=== PATIENT | female | born 1960 | race Hispanic/Latino ===

== ENCOUNTER 2018-07-27 21:21 | Inpatient (IN) | payer SELFPAY ==
[2018-07-27 22:16] LABS: Hemoglobin 13.6 g/dL (12.0-16.0); Mean Corpuscular Hemoglobin 24.6 pg (27.0-31.0); Mean Corpuscular Volume 82.8 fL (78.0-98.0); Red Blood Cell (RBC) Count 5.53 mill/uL (4.20-5.40); White Blood Cell (WBC) Count 9.4 thou/uL (4.8-10.8)
[2018-07-27] MEDS ORDERED: Acetaminophen 500 MG TAB ONE (22:19)
--- NOTE | 2018-07-27 22:26 | RAD ---
PORTABLE CHEST: 07/27/18 PROVIDED CLINICAL HISTORY: Altered mental status. FINDINGS: Comparison is made with the study dated 09/24/17. The cardiac silhouette remains enlarged. The left hemidiaphragm was poorly visualized which could be on the basis of cardiomegaly though pleural and/or parenchymal opacity at the left lung base cannot b e excluded. Lungs appear otherwise clear. There is no evidence for pneumothorax. IMPRESSION: Cardiomegaly and poor visualization of the left hemidiaphragm that could reflect pleural and/or paren chymal opacity. Consider correlating with the lateral view. POS: SETH
--- NOTE | 2018-07-27 22:27 | CT ---
CT BRAIN 07/27/18 PROVIDED CLINICAL HISTORY: Altered mental status. FINDINGS: No comparisons. The ventricular system appears normal in size and morphology. There is no evidence fo r intracranial hemorrhage or mass effect. The extracranial soft tissues and osseous structures demons trate an unremarkable CT appearance. IMPRESSION: No evidence for intracranial hemorrhage or mass effect. POS: SETH
[2018-07-27 22:38] LABS: #Eosinphils 0.1 thou/uL (0.0-0.7); #Lymphocytes 1.1 thou/uL (1.20-3.40); #Monocytes 0.5 thou/uL (0.11-0.59); #Neutrophils 7.7 thou/uL (1.40-6.50); %Basophils 0.5 % (0.0-1.0); %Eosinophils 0.6 % (0.0-10.0); %Lymphocytes 11.6 % (21.0-51.0); %Monocytes 5.5 % (0.0-10.0); %Neutrophils 81.8 % (42.0-75.0); Mean Corpuscular HGB CONC 29.7 g/dL (32.0-36.0); Mean Platelet Volume 10.6 fL (7.4-10.4); Platelet Count 195 thou/uL (130-400); RBC Distribution Width 22.1 % (11.5-14.5); RBC Morphology Normal
[2018-07-27 22:40] LABS: ALT (SGPT) 16 U/L (8-55); AST (SGOT) 23 U/L (5-34); Albumin 3.9 g/dL (3.5-5.0); Alkaline Phosphatase 103 U/L (40-150); Anion Gap 16 mmol/L (10-20); BUN (Urea Nitrogen) 40 mg/dL (9.8-20.1); Bilirubin, Total 0.6 mg/dL (0.2-1.2); Calc. Creatinine Clearance 0 mL/min (70-130); Calcium 10.2 mg/dL (7.8-10.44); Carbon Dioxide 37 mmol/L (22-29); Chloride 85 mmol/L (98-107); Estimated GFR-MDRD 38; Glucose 355 mg/dL (70-105); Potassium 3.5 mmol/L (3.5-5.1); Protein, Total 7.9 g/dL (6.0-8.3); Sodium 134 mmol/L (136-145)
[2018-07-27 23:01] LABS: Acetaminophen Less than 6.0 mcg/mL (10.0-30.0); Alcohol Less than 10 mg/dL (Less than 10); Salicylate Less than 8.0 mg/dL (15.0-30.0)
[2018-07-27] MEDS ORDERED: Piperacillin/Tazobactam 4.5 GM VIAL ONE (23:17)
[2018-07-27 23:19] LABS: Bilirubin Negative (Negative); Blood, Urine Negative (Negative); Clarity CLEAR (Clear); Glucose, Urine (Dipstick) Negative (Negative); Leukocyte Negative (Negative); Nitrite Negative (Negative); Protein, Urine (Dipstick) Negative (Neg-Trace); Specific Gravity, Urine 1.008 (1.002-1.036)
[2018-07-27 23:28] LABS: Amphetamine Not Detected (NotDetected); Barbiturates Screen Not Detected (NotDetected); Benzodiazepine Screen Not Detected (NotDetected); Cocaine Metabolite Screen Not Detected (NotDetected); Medtox Control Line Valid? VALID (VALID); Medtox Reader # READER 4; Methadone Not Detected (NotDetected); Methamphetamine Not Detected (NotDetected); Opiate Screen Not Detected (NotDetected); Oxycodone Screen Not Detected (NotDetected); Phencyclidine (PCP) Not Detected (NotDetected); THC/Cannabinoid Screen Not Detected (NotDetected); Tricyclic Screen Not Detected (NotDetected)
[2018-07-27] MEDS ORDERED: Enoxaparin Sodium 100 MG/ML SYRINGE ONE (23:30)
[2018-07-27 23:34] LABS: CKMB 9.4 ng/mL (0-6.6)
[2018-07-28] MEDS ORDERED: Ondansetron PF 4 MG/2 ML Vial IVP PRN (01:09)
[2018-07-28] MEDS ORDERED: Ondansetron ODT 4 MG TAB SL PRN (01:09)
[2018-07-28] MEDS ORDERED: Acetaminophen 325 MG TAB PO PRN (01:09)
[2018-07-28 01:31] LABS: Troponin I 1.091 ng/mL (< 0.028)
[2018-07-28 02:19] LABS: Lactic Acid 3.9 mmol/L (0.5-2.2)
[2018-07-28] MEDS ORDERED: Dextrose 5% in Water 1,000 ML IV PRN (02:31)
[2018-07-28] MEDS ORDERED: Dextrose 50% Abboject 50 ML SYRINGE SLOW IVP PRN (02:31)
[2018-07-28] MEDS ORDERED: Sodium Chloride 0.45% 1,000 ML IV SCH (02:45)
[2018-07-28 04:06] LABS: #Basophils 0.1 thou/uL (0.0-0.2); #Lymphocytes 1.3 thou/uL (1.20-3.40); #Monocytes 0.5 thou/uL (0.11-0.59); #Neutrophils 6.8 thou/uL (1.40-6.50); %Basophils 0.7 % (0.0-1.0); %Eosinophils 0.4 % (0.0-10.0); %Lymphocytes 14.6 % (21.0-51.0); %Monocytes 5.7 % (0.0-10.0); %Neutrophils 78.6 % (42.0-75.0); Hemoglobin 13.2 g/dL (12.0-16.0); Mean Corpuscular HGB CONC 30.2 g/dL (32.0-36.0); Mean Corpuscular Hemoglobin 25.2 pg (27.0-31.0); Mean Corpuscular Volume 83.5 fL (78.0-98.0); Mean Platelet Volume 10.7 fL (7.4-10.4); Platelet Count 169 thou/uL (130-400); Red Blood Cell (RBC) Count 5.24 mill/uL (4.20-5.40); White Blood Cell (WBC) Count 8.7 thou/uL (4.8-10.8)
--- NOTE | 2018-07-28 04:10 | HP ---
Please note, this patient has two accounts under the same name within the hospital record system. CHIEF COMPLAINT: Shortness of breath. HISTORY OF PRESENT ILLNESS: This patient is a 58-year-old female who was recently admitted to this facility with what appeared to be significant congestive heart failure exacerbation with an echocardiogram revealing a relatively normal ejection fraction, but grade 1 diastolic dysfunction. During that stay, the patient had aggressive diuresis and resolution of her symptoms in her peripheral edema. At the time of discharge couple weeks ago, she was on oral Lasix and appeared to be at a stable baseline. Over the past week, however, the patient has been experiencing generalized weakness and increasing shortness of breath. She apparently has been having some hypoxic episodes as well. She was having some shaking chills and rigors, and was subsequently brought to the emergency department. The family also reports that she has been a bit more forgetful of late, forgetting minor details, but not significant overall global confusion. The patient has been taking her medications as prescribed, has not had any significant impact on her current symptoms. In the emergency department, the patient was noted to be initially hypoxic and she was febrile and it was felt that the patient likely is suffering from some type of infectious etiology, likely related to some type of pneumonia. She was started on antibiotics including vancomycin and Zosyn. The patient's workup there also was notable for an elevated troponin and some EKG changes, which had not been present during her previous admission, so she did receive therapeutic dose of Lovenox and a full dose of aspirin. REVIEW OF SYSTEMS: The patient has had decreased appetite and decreased p.o. intake. She has had no significant vomiting. She has had no significant headache or vision changes. She has apparently had some tremor in her right hand noted by the family. This was also noted in the emergency department exam. All other systems were reviewed and all pertinent positives and negatives mentioned in the history of present illness. PAST MEDICAL HISTORY: Notable for diabetes mellitus type 2, morbid obesity, hypertension; the above-mentioned episode of congestive heart failure, apparently related to diastolic dysfunction with a preserved ejection fraction of 50% to 55%. PAST SURGICAL HISTORY: x3. FAMILY HISTORY: Notable for significant prevalence of diabetes and hypertension. SOCIAL HISTORY: The patient is and lives at home with family. She has no history of alcohol, tobacco, or drug abuse. She is full code; has not identified a surrogate decision maker. ALLERGIES: NONE. CURRENT MEDICATIONS: 1. Hydrochlorothiazide 25 mg daily. 2. Coreg 3.125 p.o. b.i.d. 3. Lasix 40 mg daily. 4. Losartan 100 mg daily. 5. Pravastatin 20 mg daily. 6. Gabapentin 300 mg b.i.d. 7. Metformin 1000 mg b.i.d. PHYSICAL EXAMINATION: VITAL SIGNS: Initial temperature was 102.2. Most recent vitals; BP 110/60, pulse 92, respirations 20, temperature 98.4, O2 saturation 93% on 3 L. GENERAL APPEARANCE: Age-appropriate female who is obese. She is in no distress. She is somnolent during the time of my exam. She is sleeping and demonstrating significant sleep apnea with paradoxical abdominal movements with no air exchange. HEENT: Pupils are reactive. NECK: Supple and symmetric. She has a dry oral mucosa, appears somewhat mouth breathing. HEART: Regular rate and rhythm without murmurs, gallops, or rubs. LUNGS: Clear with the exception of slow diminished breath sounds at the bases, but no wheezing or rales are noted. ABDOMEN: Soft, nontender, and nondistended. Positive bowel sounds. EXTREMITIES: Have no edema. LABORATORY DATA: White count 9.4, hemoglobin 13.6, platelets 195. Sodium 134, potassium 3.5, chloride 85, CO2 is 37, BUN 40, creatinine is 1.40, glucose is 355. Lactic acid initially 4.2, calcium 10.2, troponin 1.039. BNP 1048. Urinalysis is negative. Drug screen negative. Chest x-ray shows cardiomegaly with inability to rule out a left lower lobe opacity because of poor visualization, but no definitive infiltrates. CT of the brain shows no acute intracranial hemorrhage or mass effect. IMPRESSION AND PLAN: 1. Shortness of breath. The patient was recently admitted with what appeared to be significant volume overload requiring aggressive diuresis. It appeared to be diastolic dysfunction and she was having shortness of breath at that time. Presently, the patient does not appear to be volume overload if anything may be a bit on the dry side. Still she is having some shortness of breath with a relatively normal chest x-ray. She was febrile on admission and it is not possible at this point to completely rule out a left lower lobe infiltrate. The patient will be admitted to the hospital. Continue on supplemental oxygen therapy. Broad-spectrum antibiotics to cover hospital-acquired pneumonia, although that is yet to be fully determined. We will ask Pulmonary to see the patient as well. It was noted that the patient is having episodes of dropping her saturation substantially during periods of her sleep apnea prior to my waking her for the exam. 2. Elevated troponins. At this point, suspect this is more type 2 with demand ischemia due to episodes of hypoxia. We will continue to monitor. Continue to trend her troponins and continue with the therapeutic dose of Lovenox for now. Cardiology has been consulted. The patient does have some evidence of some significant T-wave changes laterally as well as potentially some ST-segment depression. Dr. Aguilera was called from the emergency department to make her aware of the situation. 3. Renal. The patient has evidence of acute renal failure secondary to prerenal azotemia, most likely due to dehydration from continued use of diuretics. We will give the patient some fluids and hold her diuretics for now. It is possible this could be worsening renal function due to heart failure, although that is less likely given the diastolic nature of the disease. We will see how she responds to fluids. 4. Diabetes mellitus with poor control. The patient's blood sugars are very elevated. We will give her some sliding scale coverage. 5. History of hypertension. We will continue to monitor her blood pressures before resuming that. 6. Hyperlipidemia. Continue with her usual home medications. 7. Altered mental status, unclear etiology. It appears to be more related to her respiratory issues than a true underlying neurologic condition. 8. Right hand tremor. This was intermittently noted by her family and in the ER physician exam. The etiology is unclear. We will continue to monitor. Job ID: [id number]
[2018-07-28 04:28] LABS: Anion Gap 17 mmol/L (10-20); BUN (Urea Nitrogen) 41 mg/dL (9.8-20.1); Calc. Creatinine Clearance 62 mL/min (70-130); Calcium 9.6 mg/dL (7.8-10.44); Carbon Dioxide 36 mmol/L (22-29); Chloride 86 mmol/L (98-107); Estimated GFR-MDRD 39; Glucose 294 mg/dL (70-105); Potassium 3.1 mmol/L (3.5-5.1); Sodium 136 mmol/L (136-145)
[2018-07-28 04:51] LABS: Critical Call Chem Troponin I RESULT DECREASING; Troponin I 0.924 ng/mL (< 0.028)
[2018-07-28 07:21] VITALS: BMI 39.6
[2018-07-28] MEDS ORDERED: Piperacillin/Tazobactam 4.5 GM in Sodium Chloride 0.9% 100 ML IVPB SCH (08:00)
[2018-07-28] MEDS: Carvedilol 3.125 MG TAB PO SCH ×2 (08:38→20:22)
[2018-07-28] MEDS: Gabapentin 300 MG CAP PO SCH ×2 (08:38→20:22)
[2018-07-28] MEDS ORDERED: Aspirin 325 MG TAB PO SCH (09:00)
[2018-07-28] MEDS ORDERED: Enoxaparin Sodium 100 MG/ML SYRINGE SC SCH (09:00)
[2018-07-28] MEDS ORDERED: Famotidine 20 MG TAB PO SCH (09:00)
[2018-07-28] MEDS ORDERED: Enoxaparin Sodium 30 MG/0.3 ML SYRINGE SC SCH (09:00)
[2018-07-28] MEDS: Potassium Chloride 20 MEQ TAB PO SCH ×2 (09:45→12:51)
[2018-07-28] MEDS: HumaLOG 300 UNITS/3 ML VIAL SC PRN ×3 (11:39→20:21)
--- NOTE | 2018-07-28 12:58 | EKG ---
Test Reason : Blood Pressure : / mmHG Vent. Rate : 082 BPM Atrial Rate : 082 BPM P-R Int : 136 ms QRS Dur : 134 ms QT Int : 406 ms P-R-T Axes : 052 144 -73 degrees QTc Int : 474 ms Normal sinus rhythm Right bundle branch block T wave abnormality, consider inferolateral ischemia Ischemia T wave changes seen 03-Jul-2018 Abnormal ECG Confirmed by CLIF DICKSON ([id number]), video effects editor MICHELLE ENRIQUEZ ([id number]) on 07/28/2018 12:58:13 PM Referred By: Confirmed By:CLIF DICKSON
--- NOTE | 2018-07-28 13:00 | EKG ---
Test Reason : Blood Pressure : / mmHG Vent. Rate : 077 BPM Atrial Rate : 077 BPM P-R Int : 138 ms QRS Dur : 138 ms QT Int : 428 ms P-R-T Axes : 048 133 -70 degrees QTc Int : 484 ms Normal sinus rhythm Possible Left atrial enlargement Right bundle branch block T wave abnormality, consider inferolateral ischemia Ischemia T wave changes see on 03-JUL-2018 Abnormal ECG Confirmed by CLIF DICKSON ([id number]), food expeditor MICHELLE ENRIQUEZ ([id number]) on 07/28/2018 1:00:28 PM Referred By: Confirmed By:CLIF DICKSON
[2018-07-28 13:41] LABS: Lactic Acid 2.1 mmol/L (0.5-2.2)
[2018-07-28 13:43] LABS: Anion Gap 16 mmol/L (10-20); BUN (Urea Nitrogen) 41 mg/dL (9.8-20.1); Calc. Creatinine Clearance 68 mL/min (70-130); Calcium 9.3 mg/dL (7.8-10.44); Carbon Dioxide 37 mmol/L (22-29); Chloride 88 mmol/L (98-107); Estimated GFR-MDRD 43; Glucose 245 mg/dL (70-105); Magnesium 1.6 mg/dL (1.6-2.6); Phosphorus 5.1 mg/dL (2.3-4.7); Potassium 3.8 mmol/L (3.5-5.1); Sodium 137 mmol/L (136-145)
[2018-07-28] MEDS ORDERED: Magnesium 2 GM/50 ML 2 GM in Premix Bag 1 BAG IVPB SCH (14:00)
--- NOTE | 2018-07-28 14:48 | CON ---
DATE OF CONSULTATION: 07/28/2018 SERVICE: Pulmonary Medicine. REASON FOR CONSULTATION: ICU patient. HISTORY OF PRESENT ILLNESS: The patient is a 58-year-old female with past medical history significant for morbid obesity, sleep apnea, and heart failure. She presented to the hospital with hypoxemia and confusion. She was also having some shaking chills. Ultimately, she was placed in the ICU and initiated on diuretics. Overnight, her oxygen saturations improved dramatically. She currently denies any fevers or chills. There were no significant overnight events other than intermittent hypoxemia associated with horrendous obstructive apneas. She denies any recent febrile illnesses, fevers, nausea, vomiting, diarrhea, hot red swollen joints, rashes, or arthralgias. She is having a cough, but not generating any sputum. PAST MEDICAL HISTORY: 1. Chronic diastolic heart failure. 2. Type 2 diabetes mellitus. 3. Morbid obesity. 4. Hypertension. 5. Obstructive sleep apnea, witnessed at bedside. PAST SURGICAL HISTORY: section x3. SOCIAL HISTORY: She is and lives at home with family members. She does not use any alcohol, tobacco, or illicit drug use. She is [place]ic-speaking only. She does not note any recent exposure to chemicals, dust, asbestos, or tuberculosis. FAMILY HISTORY: Noncontributory. ALLERGIES: NO KNOWN DRUG ALLERGIES. MEDICATIONS: List of her inpatient medications was reviewed. A couple of small updates were made. REVIEW OF SYSTEMS: General, head, ears, eyes, nose, throat, cardiovascular, respiratory, GI, , musculoskeletal, neurologic, and skin are negative except as mentioned is the HPI. PHYSICAL EXAMINATION: VITAL SIGNS: Afebrile, pulse 97, blood pressure 109/67, respirations 12, and saturation 77% on 3 L nasal cannula. GENERAL: The patient is awake, alert, and in no apparent distress. LUNGS: Decent air entry. Dependent crackles are present in the bibasilar regions. HEART: Normal rate regular. ABDOMEN: Soft, nontender, and nondistended. Bowel sounds are positive. MUSCULOSKELETAL: No cyanosis or clubbing. There is trace pitting in the bilateral lower extremities. NEUROLOGIC: Grossly nonfocal. LABORATORY DATA: WBC 8.7, hemoglobin 13.2, and platelets 169,000. Neutrophil count is roughly stable/unremarkable. Creatinine 1.39 and stable, BUN 41, bicarb 36, and chloride 86. Basic metabolic profile was otherwise unremarkable. Troponin is downtrending to 0.924, lactate is resolving and currently 3.9. Liver function studies were unremarkable. BNP is 1050, which is a historic high. Urinalysis is unremarkable. Urine drug screen is negative. Plasma alcohol, acetaminophen, and salicylates are unremarkable as well. IMAGING DATA: 1. CT of the brain demonstrates no acute intracranial abnormality. 2. Chest x-ray demonstrates cardiomegaly. There is a widened carinal angle suggestive of left atrial dilation. Left pleural-parenchymal opacification is present, likely consistent with a pleural effusion. There is blunting of the right costophrenic angle, also consistent with effusion. Low lung volumes, accentuated interstitial marking, but I get the sense that pulmonary vascular congestion is also present. There is fullness at the AP window. ASSESSMENT: 1. Acute hypoxic respiratory failure. 2. Acute on chronic diastolic heart failure. 3. Unp-YF-yjjdtyres myocardial infarction. 4. Metabolic encephalopathy secondary to hypoxemia, resolved. DISCUSSION AND PLAN: We will continue to aggressively diurese the patient to euvolemia. We will monitor for signs of sepsis. We will continue our empiric antibiotics for the time being, but rapidly deescalate within 24 hours if we do not have anything that is abnormal. Pulmonary Critical Care will continue to follow along. That being said, she is stable for transition out of the ICU to the medical unit. I will throw an ammonia in with tomorrow morning's laboratories and replace some potassium today. Job ID: [id number]
--- NOTE | 2018-07-28 17:10 | PDOC.PN ---
- Subjective Encounter Start Date: 07/28/18 Encounter Start Time: 17:00 Subjective: f/u for acute/chronic hypoxic resp failure, severe sleep apnea and -: diastolic CHF. Received Lasix and O2 support. Overall feels better. - Objective Resuscitation Status - Order Detail: 07/28/18 02:13 Resuscitation Status Routine Resuscitation Status: FULL: Full Resuscitation Discussed with: Patient LETI Reviewed: Yes Vital Signs & Weight: Vital Signs (12 hours) Temp Pulse Ox 07/28/18 16:00 99.8 F H 07/28/18 13:06 85 L 07/28/18 12:00 98.8 F 07/28/18 07:22 97 Weight Weight 201 lb 15.095 oz Most Recent Monitor Data Heart Rate from ECG 65 NIBP 104/64 NIBP BP-Mean 77 Respiration from ECG 13 SpO2 89 I&O: 07/27/18 07/28/18 07/29/18 06:59 06:59 06:59 Intake Total 152 340 Output Total 0 400 Balance 152 -60 Result Diagrams: 07/28/18 03:58 07/28/18 13:11 Additional Labs: Accuchecks 07/28/18 07/28/18 07/27/18 16:04 11:35 21:34 POC Glucose 275 H 254 H 334 H Microbiology 07/27/18 23:07 Urine voided Urine Culture - Preliminary Laboratory Tests 07/27/18 07/28/18 07/28/18 22:00 03:58 13:09 Creatinine 1.40 H 1.39 H Lactic Acid Phosphorus Magnesium Ammonia 35 07/28/18 07/28/18 13:11 13:11 Creatinine Lactic Acid 2.1 Phosphorus 5.1 H Magnesium 1.6 Ammonia Radiology Reviewed by me: Yes (CT brain - no acute process) EKG Reviewed by me: Yes (Tele - SR) Phys Exam - Physical Examination Constitutional: NAD HEENT: PERRLA, sclera anicteric, oral pharynx no lesions Neck: no nodes, no JVD, supple, full ROM diminished in bases Respiratory: no wheezing Cardiovascular: RRR, no significant murmur, no rub, gallop Gastrointestinal: soft, non-tender, no distention, positive bowel sounds minimal LE edema Musculoskeletal: pulses present, edema present Neurological: normal sensation, moves all 4 limbs Psychiatric: A&O x 3 Skin: normal turgor, cap refill <2 seconds Dx/Plan (1) Acute on chronic respiratory failure with hypoxia and hypercapnia Code(s): J96.21 - ACUTE AND CHRONIC RESPIRATORY FAILURE WITH HYPOXIA; J96.22 - ACUTE AND CHRONIC RESPIRATORY FAILURE WITH HYPERCAPNIA Status: Acute Comment : O2 supplementation, BiPAP nocturnally or while sleeping (2) Acute metabolic encephalopathy Code(s): G93.41 - METABOLIC ENCEPHALOPATHY Status: Acute Comment: Secondary to hypoxia, improved with oxygenation, serial monitoring (3) Acute on chronic diastolic (congestive) heart failure Code(s): I50.33 - ACUTE ON CHRONIC DIASTOLIC (CONGESTIVE) HEART FAILURE Status : Acute Comment: Stable currently, monitor fluid status, daily weight, I/O's (4) Severe sleep apnea Code(s): G47.30 - SLEEP APNEA, UNSPECIFIED Status: Chronic Comment: Outpt sleep study, Pulmonology follow up (5) Morbid obesity Code(s): E66.01 - MORBID (SEVERE) OBESITY DUE TO EXCESS CALORIES Status: Chronic (6) MEME (acute kidney injury) Code(s): N17.9 - ACUTE KIDNEY FAILURE, UNSPECIFIED Status: Acute Comment: Avoid nephrotoxic meds and limit contrast exposure - Plan high school social studies teacher, respiratory therapy, DVT proph w/SCDs continue supportive mgmt -: BiPAP for sleep/HS -: Outpt sleep study, needs home CPAP/BiPAP -: OOB/ambulate -: Transfer to [facility] * AM lab: BMP, CBC
[2018-07-28] MEDS: Pravastatin Sodium 20 MG TAB PO SCH (20:22)
--- NOTE | 2018-07-28 22:02 | CON ---
DATE OF CONSULTATION: 07/28/2018 TYPE OF CONSULTATION: Cardiology. REASON FOR CONSULTATION: Shortness of breath. HISTORY OF PRESENT ILLNESS: Ms. Ashraf is a pleasant 58-year-old female, well known to myself, who comes to the hospital for altered mentation. She was found by her daughter at home altered, difficult to arouse, checked her oxygen level and it was actually in 61%. She stood her up, woke her up, made her to take deep breath eventually went up to about the mid 80s, and she eventually continued to be somewhat somnolent, so she eventually brought her in for further evaluation. She apparently is still somewhat somnolent, but much easier to arouse. She had to be on BiPAP briefly, but is now just on nasal cannula at 4 L. She denies any chest pain, tightness or pressure. Her shortness of breath is better. PAST MEDICAL HISTORY: 1. Type 2 diabetes. 2. Morbid obesity. 3. Hypertension. 4. Diastolic heart failure. 5. Most likely severe sleep apnea. PAST SURGICAL HISTORY: x3. FAMILY HISTORY: Diabetes and hypertension. SOCIAL HISTORY: , lives at home with daughter. No alcohol, tobacco, or drugs. OUTPATIENT MEDICATIONS: 1. Hydrochlorothiazide 25 mg a day. 2. Coreg 3.125 b.i.d. 3. Lasix 40 mg a day. 4. Losartan 100 mg a day. 5. Pravastatin 20 mg a day. 6. Gabapentin 300 mg b.i.d. 7. Metformin 1000 mg b.i.d. ALLERGIES: NO KNOWN DRUG ALLERGIES. REVIEW OF SYSTEMS: Unobtainable as the patient is difficult to arouse. PHYSICAL EXAMINATION: VITAL SIGNS: Temperature 99.4, pulse 68, respiratory rate 17, saturating 94% on 4 L, blood pressure 111/75. GENERAL: The patient is sleepy, but easily arousable. She is oriented to person, place, and difficulty with time, but gets it right at the end, in no distress. HEENT: Normocephalic, atraumatic. NECK: Supple. LUNGS: Mostly clear bilaterally. CARDIOVASCULAR: S1 and S2. No S3, S4. No murmurs. ABDOMEN: Soft. Positive bowel sounds. EXTREMITIES: Trace edema. SKIN: Warm and dry. LABORATORY DATA: Laboratory work was reviewed. CBC, complete metabolic profile, UA, and toxicology were all reviewed. IMAGING: CT of the brain was reviewed, it showed no evidence of intracranial hemorrhage or mass effect. Chest x-ray; unchanged. ASSESSMENT: 1. Altered mental status. 2. Possible diastolic heart failure, less likely. 3. Severe sleep apnea, this is most likely the case. No formal sleep study done, but we have seen her get hypoxic several times during her sleep on her previous admissions. Pulmonary already following. 4. Possible pneumonia. PLAN: 1. I agree with Pulmonary evaluation, this is probably hypercapnia. I do not see any specific source of infection, but she is being treated with antibiotics. I think this is adequate given the unknowns in this case. 2. ABG per Dr. Jimenes. 3. No new recommendations from the cardiac perspective. Job ID: [id number]
[2018-07-29 04:24] LABS: #Lymphocytes 1.1 thou/uL (1.20-3.40); #Monocytes 0.5 thou/uL (0.11-0.59); #Neutrophils 4.1 thou/uL (1.40-6.50); %Basophils 0.5 % (0.0-1.0); %Eosinophils 0.3 % (0.0-10.0); %Monocytes 8.6 % (0.0-10.0); %Neutrophils 71.6 % (42.0-75.0); Hemoglobin 12.5 g/dL (12.0-16.0); Mean Corpuscular HGB CONC 30.6 g/dL (32.0-36.0); Mean Corpuscular Hemoglobin 25.5 pg (27.0-31.0); Mean Corpuscular Volume 83.3 fL (78.0-98.0); Mean Platelet Volume 10.5 fL (7.4-10.4); Platelet Count 142 thou/uL (130-400); RBC Distribution Width 21.8 % (11.5-14.5); Red Blood Cell (RBC) Count 4.91 mill/uL (4.20-5.40); White Blood Cell (WBC) Count 5.7 thou/uL (4.8-10.8)
[2018-07-29 04:43] LABS: BUN (Urea Nitrogen) 40 mg/dL (9.8-20.1); Calc. Creatinine Clearance 90 mL/min (70-130); Calcium 9.1 mg/dL (7.8-10.44); Estimated GFR-MDRD 59; Glucose 164 mg/dL (70-105)
[2018-07-29 04:52] LABS: Anion Gap 16 mmol/L (10-20); Carbon Dioxide 36 mmol/L (22-29); Chloride 88 mmol/L (98-107); Potassium 3.1 mmol/L (3.5-5.1); Sodium 137 mmol/L (136-145)
[2018-07-29] MEDS: Carvedilol 3.125 MG TAB PO SCH ×2 (08:58→21:50)
[2018-07-29] MEDS: Gabapentin 300 MG CAP PO SCH ×2 (08:58→21:50)
[2018-07-29] MEDS: HumaLOG 300 UNITS/3 ML VIAL SC PRN ×3 (12:47→21:51)
--- NOTE | 2018-07-29 13:38 | PDOC.PN ---
- Subjective Encounter Start Date: 07/29/18 Encounter Start Time: 13:30 Subjective: f/u for severe RADHA on BiPAP NIMV nocturnally. Feels better overall -: and asking when she can go home. - Objective Resuscitation Status - Order Detail: 07/28/18 02:13 Resuscitation Status Routine Resuscitation Status: FULL: Full Resuscitation Discussed with: Patient LETI Reviewed: Yes Vital Signs & Weight: Vital Signs (12 hours) Temp Pulse Pulse Ox 07/29/18 11:00 97.7 F 07/29/18 08:08 92 L 07/29/18 08:02 59 L 07/29/18 08:00 93 L 07/29/18 07:00 97.6 F 07/29/18 04:00 99.0 F 07/29/18 02:24 64 07/29/18 02:00 99.9 F H Weight Weight 199 lb 11.821 oz Most Recent Monitor Data Heart Rate from ECG 68 NIBP 112/61 NIBP BP-Mean 78 Respiration from ECG 18 SpO2 96 I&O: 07/28/18 07/29/18 07/30/18 06:59 06:59 06:59 Intake Total 152 1820 240 Output Total 0 800 450 Balance 152 1020 -210 Result Diagrams: 07/29/18 04:00 07/29/18 04:00 Additional Labs: Accuchecks 07/29/18 07/29/18 07/29/18 12:42 08:31 00:04 POC Glucose 275 H 145 H 161 H 07/28/18 07/28/18 20:20 16:04 POC Glucose 164 H 275 H Microbiology 07/27/18 23:12 Venous blood - Left Arm Blood Culture - Preliminary Specimen has been received and culture in progress. No Growth to date. 07/27/18 23:07 Urine voided Urine Culture - Preliminary 07/27/18 22:00 Venous blood - Right Arm Blood Culture - Preliminary Specimen has been received and culture in progress. No Growth to date. Laboratory Tests 07/27/18 07/28/18 07/28/18 22:00 03:58 13:09 Potassium 3.1 L Creatinine 1.40 H 1.39 H Lactic Acid Phosphorus Magnesium Ammonia 35 07/28/18 07/28/18 13:11 13:11 Potassium 3.8 Creatinine Lactic Acid 2.1 Phosphorus 5.1 H Magnesium 1.6 Ammonia EKG Reviewed by me: Yes (Tele - SR) Phys Exam - Physical Examination alert, NC in place HEENT: PERRLA, sclera anicteric, oral pharynx no lesions Neck: no nodes, no JVD, supple, full ROM Respiratory: no wheezing, no rales S1, S2 Cardiovascular: RRR, no significant murmur, no rub, gallop Gastrointestinal: soft, non-tender, no distention, positive bowel sounds trace edema LE's Musculoskeletal: pulses present Neurological: normal sensation, moves all 4 limbs Psychiatric: A&O x 3 Skin: normal turgor, cap refill <2 seconds Dx/Plan (1) Acute on chronic respiratory failure with hypoxia and hypercapnia Code(s): J96.21 - ACUTE AND CHRONIC RESPIRATORY FAILURE WITH HYPOXIA; J96.22 - ACUTE AND CHRONIC RESPIRATORY FAILURE WITH HYPERCAPNIA Status: Acute Comment : O2 supplementation, BiPAP nocturnally or while sleeping, will need outpt sleep study but funding is an issue (2) Acute metabolic encephalopathy Code(s): G93.41 - METABOLIC ENCEPHALOPATHY Status: Acute Comment: Secondary to hypoxia, improved with oxygenation, serial monitoring (3) Acute on chronic diastolic (congestive) heart failure Code(s): I50.33 - ACUTE ON CHRONIC DIASTOLIC (CONGESTIVE) HEART FAILURE Status : Acute Comment: Stable currently, monitor fluid status, daily weight, I/O's (4) Severe sleep apnea Code(s): G47.30 - SLEEP APNEA, UNSPECIFIED Status: Chronic Comment: Outpt sleep study, Pulmonology follow up (5) Morbid obesity Code(s): E66.01 - MORBID (SEVERE) OBESITY DUE TO EXCESS CALORIES Status: Chronic (6) MEME (acute kidney injury) Code(s): N17.9 - ACUTE KIDNEY FAILURE, UNSPECIFIED Status: Acute Comment: Avoid nephrotoxic meds and limit contrast exposure, improved - Plan Continue pulmonary support -: Nocturnal BiPAP -: Coordinate for outpt sleep study, financial constraints currently -: OOB/sit upright -: Likely home in 24h * KCL 40meq BID * AM lab: BMP
[2018-07-29] MEDS ORDERED: Potassium Chloride 20 MEQ TAB PO SCH (14:00)
--- NOTE | 2018-07-29 14:53 | PRG ---
DATE OF SERVICE: 07/29/2018 SERVICE: Pulmonary Medicine. INTERVAL HISTORY: The patient is breathing comfortably this morning. She is wide awake, sitting in a bedside chair. She denies any current chest pain, fevers, or chills. She denies any shortness of breath. Otherwise, she has returned to her usual state of health and she has no complaints. OBJECTIVE: VITAL SIGNS: Afebrile, pulse 68, blood pressure 112/61, respirations 18, saturation 96% on 0.5 L nasal cannula. GENERAL: The patient is awake and alert, in no apparent distress. LUNGS: Excellent air entry. There is no prolonged expiratory phase or wheezing present. HEART: Normal rate, regular. ABDOMEN: Soft, nontender, and nondistended. Bowel sounds are positive. MUSCULOSKELETAL: No cyanosis or clubbing. There is trace 1+ pitting in the bilateral lower extremities. NEUROLOGIC: Grossly nonfocal. LABORATORY DATA: WBC 5.7, hemoglobin 12.5, and platelets 142,000. Potassium 3.1, chloride 88, bicarb 36 and stable. Basic metabolic profile is unremarkable with a downtrending creatinine. Anion gap is stable. Urinalysis is unremarkable. Blood cultures x2 and urine culture remain negative to date. ASSESSMENT: 1. Acute hypoxic respiratory failure. 2. Chronic hypercapnic respiratory failure. 3. Acute on chronic diastolic heart failure, improving. 4. [id number] myocardial infarction. 5. Metabolic encephalopathy secondary to hypoxemia, resolved. DISCUSSION AND PLAN: I will replace the potassium x2 doses today. We will check a magnesium with tomorrow morning's laboratories. From my perspective, she is stable for transition to the telemetry unit. Pulmonary will continue to follow for the time being. Job ID: [id number]
[2018-07-29] MEDS: Potassium Chloride 20 MEQ TAB PO SCH (16:57)
[2018-07-29] MEDS ORDERED: Acetaminophen 500 MG TAB PO PRN (21:08)
--- NOTE | 2018-07-29 21:13 | PDOC.CTH ---
Cardiology Progress Note - Subjective No new issues. She is mentating better. She wore a BiPAP overnight. - Objective Vital Signs Temp Pulse Resp BP Pulse Ox 07/29/18 15:43 98.1 F 67 18 120/69 94 L 07/29/18 15:24 94 L 07/29/18 11:00 97.7 F Weight 199 lb 11.821 oz 07/28/18 07/29/18 07/30/18 06:59 06:59 06:59 Intake Total 152 1820 525 Output Total 0 800 450 Balance 152 1020 75 - Physical Examination General/Neuro: alert & oriented x3, NAD Neck: no JVD present Lungs: CTA, unlabored respirations Heart: RRR Abdomen: NT/ND Extremities: other: (no edema) - Telemetry Telemetry Rhythm: NSR - Labs Result Diagrams: 07/29/18 04:00 07/29/18 04:00 Troponin/CKMB CK-MB (CK-2) 9.4 ng/mL (0-6.6) H* 07/27/18 22:00 Troponin I 0.924 ng/mL (< 0.028) H* 07/28/18 03:58 - Assessment/Plan 1. Acute hypoxic respiratory failure, improved. 2. Severe RADHA 3. Diastolic dysfunction, stable. 4. AMS likely from hypoxia, hypercapnia. PLAN: - CV stable. - Replace K - No new recs.
[2018-07-29] MEDS: Pravastatin Sodium 20 MG TAB PO SCH (21:50)
[2018-07-30] MEDS: HumaLOG 300 UNITS/3 ML VIAL SC PRN ×2 (05:06→09:54)
[2018-07-30 05:47] LABS: Anion Gap 13 mmol/L (10-20); BUN (Urea Nitrogen) 30 mg/dL (9.8-20.1); Calc. Creatinine Clearance 104 mL/min (70-130); Calcium 9.4 mg/dL (7.8-10.44); Carbon Dioxide 36 mmol/L (22-29); Chloride 92 mmol/L (98-107); Estimated GFR-MDRD 71; Glucose 353 mg/dL (70-105); Magnesium 2.1 mg/dL (1.6-2.6); Potassium 3.5 mmol/L (3.5-5.1); Sodium 137 mmol/L (136-145)
--- NOTE | 2018-07-30 08:28 | PDOC.CTH ---
Cardiology Progress Note - Subjective Doing much better since using the BiPAP every night. - Objective Vital Signs Temp Pulse Resp BP Pulse Ox 07/30/18 05:00 148/80 H 07/30/18 03:45 97.3 F L 48 L 16 173/97 H 97 Weight 199 lb 1.6 oz 07/29/18 07/30/18 07/31/18 06:59 06:59 06:59 Intake Total 1820 875 Output Total 800 450 Balance 1020 425 - Physical Examination General/Neuro: alert & oriented x3, NAD Neck: no JVD present Lungs: CTA, unlabored respirations Heart: RRR Abdomen: NT/ND Extremities: + edema B (Trace) - Telemetry Telemetry Rhythm: S Elias - Labs Result Diagrams: 07/29/18 04:00 07/30/18 04:33 Troponin/CKMB CK-MB (CK-2) 9.4 ng/mL (0-6.6) H* 07/27/18 22:00 Troponin I 0.924 ng/mL (< 0.028) H* 07/28/18 03:58 - Assessment/Plan 1. Acute hypoxic respiratory failure, improved. 2. Severe RADHA 3. Diastolic dysfunction, stable. 4. AMS likely from hypoxia, hypercapnia. PLAN: - CV stable. - Will sign off. please call th any questions. - Follow up in the office as previously scheduled.
[2018-07-30] MEDS: Potassium Chloride 20 MEQ TAB PO SCH (09:53)
[2018-07-30] MEDS: Gabapentin 300 MG CAP PO SCH (09:54)
[2018-07-30] MEDS: Carvedilol 3.125 MG TAB PO SCH (09:54)
[2018-07-30 12:45] VITALS: TEMP 99.1
--- NOTE | 2018-07-30 15:20 | PRG ---
DATE OF SERVICE: 07/30/2018 SERVICE: Pulmonary Medicine. INTERVAL HISTORY: The patient is doing great from respiratory standpoint. Denies any current chest pain, fevers, chills, nausea, vomiting, or diarrhea. Otherwise, there has been no interval change to her condition. She is breathing comfortably. She has been weaned down to room air and has no specific complaints currently. OBJECTIVE: VITAL SIGNS: Afebrile, currently. Pulse 53, blood pressure 132/81, respirations 16, and saturation 88% on room air. GENERAL: The patient is awake, alert, in no apparent distress. LUNGS: Decent air entry. Dependent crackles persist. There is no prolonged expiratory phase or wheezing appreciated. HEART: Normal rate ,regular. ABDOMEN: Soft, nontender, and nondistended. Bowel sounds positive. MUSCULOSKELETAL: No cyanosis or clubbing. There is trace pitting in the bilateral lower extremities. NEUROLOGIC: Grossly nonfocal. LABORATORY DATA: Creatinine downtrending to 0.82, BUN is down to 30. Bicarb 36. Basic metabolic profile is otherwise unremarkable. Potassium 3.5. Magnesium 2.1. Urine drug screen is unremarkable. Blood cultures x2 and urine cultures negative to date. ASSESSMENT: 1. Acute hypoxic respiratory failure, improving. 2. Chronic hypercapnic respiratory failure. 3. Owane-de-suyjpce diastolic heart failure. 4. Metabolic encephalopathy, resolved. 5. Obstructive sleep apnea, severe. DISCUSSION AND PLAN: The patient is doing really well from respiratory standpoint. She would really benefit from an outpatient polysomnogram. She really does need noninvasive ventilation in the outpatient setting. That being said, her pressures that she requires are completely unknown. I will replace the potassium today. At this point, she is off oxygen. She can be considered for transition out of the hospital. She will follow up with Pulmonology as previously directed. Hopefully, we will be able to arrange for her to get an in-lab polysomnogram so that we know what BiPAP settings to use. At this point, she has no further inpatient requirements for Pulmonary Critical Care or Critical Care opinion, and I will sign off. Call with additional questions or concerns please. Job ID: [id number]
[2018-07-30 16:53] VITALS: BP 141/82
--- NOTE | 2018-08-01 17:02 | DIS ---
DATE OF ADMISSION: 07/27/2018 DATE OF DISCHARGE: 07/30/2018 DISCHARGE DIAGNOSES: 1. Acute on chronic hypoxemic hypercapnic respiratory failure. 2. Acute metabolic encephalopathy secondary to hypercapnia and hypoxemia. 3. Acute on chronic diastolic congestive heart failure. 4. Severe sleep apnea. 5. Morbid obesity. 6. Acute kidney injury, resolved. CONSULTATIONS: 1. Dr. Jimenes with Pulmonology Service. 2. Dr. Jackson with Cardiology Service. PERTINENT LABORATORY AND X-RAY FINDINGS: Potassium ranged between 3.1 to 3.8. Creatinine ranged between 0.82 to 1.40. Estimated GFR ranged between 38 to 71. Lactic acid level ranged between 2.1 to 4.2, phosphorus 5.1, magnesium level ranged between 1.6 to 2.1. Troponin I ranged between 0.924 to 1.09. BNP 1048. Serum ammonia level 35. Urine drug screen dated 07/27/2018, negative. Blood cultures x2 dated 07/27/2018, showed no growth at 48 hours. Urine culture dated 07/27/2018, showed 50,000 to 75,000 colonies of mixed skin lele. CT of the brain without contrast dated 07/27/2018, showed no acute intracranial process. Portable chest x-ray dated 07/27/2018, showed cardiomegaly without acute process. HOSPITAL COURSE: The patient was initially admitted after presenting with increased shortness of breath with prior history of diastolic congestive heart failure and obstructive sleep apnea. The patient presented with increased shortness of breath with chest imaging showing cardiomegaly without an acute infiltrate. The patient was given oxygen supplementation and placed on BiPAP noninvasive mechanical ventilation after concern for hypoxic hypercapnic respiratory failure. The patient was evaluated by the Pulmonology Service with recommendations for nocturnal BiPAP/CPAP with overall improvement in clinical presentation. The patient was evaluated for outpatient BiPAP/CPAP. However, due to financial constraints, we will need an outpatient sleep study to further delineate appropriate settings for the CPAP on discharge. The patient was also evaluated by Cardiology Service due to elevated troponin I that was deemed demand ischemia in the context of hypoxic hypercapnic respiratory failure. No specific acute intervention was recommended per Cardiology recommendations. The patient overall clinically stabilized and transferred to the Telemetry unit, where the patient remained on nasal cannula oxygen support at 2 L/minute. The patient was given information regarding outpatient sleep studies as well as the need for home oxygen for nocturnal use pending obtaining a home CPAP machine. I examined the patient at the time of discharge and discussed followup instructions. The patient verbalizes understanding and agreement and ready for discharge on 07/30/2018. DISCHARGE MEDICATIONS: 1. Coreg 3.125 mg p.o. b.i.d. 2. Lasix 40 mg p.o. daily. 3. Gabapentin 600 mg p.o. b.i.d. 4. Hydrochlorothiazide 25 mg p.o. daily. 5. Losartan/hydrochlorothiazide 100/25 mg 1 tab p.o. daily. 6. Metformin 1000 mg p.o. b.i.d. 7. Pravachol 20 mg p.o. at bedtime. 8. Vitamin B12 of 1000 mcg p.o. daily. FOLLOWUP: The patient to follow up with her primary care provider, Dr. Emma De Jesus on 08/06/2018 at 11:30 a.m. The patient to follow up with Dr. Anand Jackson on 08/19/2018 at 11:00 a.m. The patient may also follow up with Dr. Lalo Mcgrath to establish an outpatient sleep study. CONDITION ON DISCHARGE: Fair. ACTIVITY: Ad-kiara. SPECIAL INSTRUCTIONS: Recommend oxygen supplementation via nasal cannula at 2 L/minute with nocturnal use as the majority of time using the device. DIET: ADA and heart healthy. CODE STATUS: Full. DISPOSITION: Home on 07/30/2018. TIME SPENT: Total time preparing and coordinating discharge is 32 minutes. Job ID: [id number]
== END 2018-07-30 16:42 | disposition home or self-care (01) | DRG 189 ==
LOC: ERS 21:21 → CCU 23:42 → 2NO 07-29 15:39
PROVIDERS: ADMIT Internal Medicine; ATTEND Internal Medicine
DX: J96.21 Acute and chronic respiratory failure with hypoxia (principal); G93.41 Metabolic encephalopathy; I50.33 Acute on chronic diastolic (congestive) heart failure; N17.9 Acute kidney failure, unspecified; I24.8 Other forms of acute ischemic heart disease; I11.0 Hypertensive heart disease with heart failure; J96.22 Acute and chronic respiratory failure with hypercapnia; E11.9 Type 2 diabetes mellitus without complications; Z68.39 Body mass index [BMI] 39.0-39.9, adult; E66.01 Morbid (severe) obesity due to excess calories; E86.0 Dehydration; G47.33 Obstructive sleep apnea (adult) (pediatric); Z79.84 Long term (current) use of oral hypoglycemic drugs; Z82.49 Family history of ischemic heart disease and other diseases of the circulatory system; Z83.3 Family history of diabetes mellitus
CPT/HCPCS: 36415; 36416; 70450; 71045; 80048; 80053; 80306; 80307; 81003; 82140; 82553; 83605; 83735; 83880; 84100; 84484; 85025; 87040; 87086; 93005; 93798; 94660; 96361; 96365; 96367; 96372; J1650; J2543; J3370; J7050

== ENCOUNTER 2019-01-24 12:07 | Outpatient (CLI) | payer OTHER ==
--- NOTE | 2019-01-24 12:43 | RAD ---
RIGHT KNEE 2 VIEWS: HISTORY: Knee pain. FINDINGS: There are moderate degenerative changes of the right knee. Loss of medial joint space. Mild to mode rate spurring from the femoral condyles and patella. Mild spurring from the tibial condyles. No adrian nt effusion. No fracture. IMPRESSION: Mild to moderate degenerative changes right knee. POS: OFF
--- NOTE | 2019-01-24 12:44 | RAD ---
LEFT KNEE 2 VIEWS: HISTORY: Knee pain. FINDINGS: There are mild degenerative changes noted. Mild narrowing of the medial joint space. Mild spurring from the tibial spines, patella, and condyles. No joint effusion. IMPRESSION: There are mild degenerative changes as described. POS: OFF
[2019-01-24 15:10] LABS: CCP IgG Antibody 2.4 EliAU/mL (<7 Negative); EliA RAS New Method **** NEW METHOD ****; Rheumatoid Factor IgM Antibody Less than 0.5 IU/mL (<3.5 Negative)
== END 2019-01-24 12:08 | disposition home or self-care (01) ==
LOC: RAD 12:07
PROVIDERS: ATTEND Internal Medicine Rheumatology
DX: M17.0 Bilateral primary osteoarthritis of knee (principal)
CPT/HCPCS: 83520; 86200

== ENCOUNTER 2019-01-28 17:00 | Outpatient (CLI) | payer OTHER | END 2019-01-28 17:01 | disposition home or self-care (01) | LOC: SLEEPLAB 17:00 | PROVIDERS: ATTEND Internal Medicine | DX: G47.33 Obstructive sleep apnea (adult) (pediatric) (principal); I10 Essential (primary) hypertension; E11.9 Type 2 diabetes mellitus without complications; K21.9 Gastro-esophageal reflux disease without esophagitis; E66.9 Obesity, unspecified; R53.83 Other fatigue; R35.1 Nocturia; R51 Headache; R09.89 Other specified symptoms and signs involving the circulatory and respiratory systems; Z68.36 Body mass index [BMI] 36.0-36.9, adult | CPT/HCPCS: 95806 ==

== ENCOUNTER 2019-10-22 13:24 | Emergency (ER) | payer OTHER ==
[2019-10-22 13:54] LABS: #Basophils 0.1 thou/uL (0.0-0.2); #Eosinphils 0.2 thou/uL (0.0-0.7); #Lymphocytes 2.4 thou/uL (1.20-3.40); #Monocytes 0.7 thou/uL (0.11-0.59); #Neutrophils 8.8 thou/uL (1.40-6.50); %Basophils 0.6 % (0.0-1.0); %Eosinophils 1.4 % (0.0-10.0); %Lymphocytes 19.5 % (21.0-51.0); %Neutrophils 72.6 % (42.0-75.0); Hemoglobin 12.1 g/dL (12.0-16.0); Mean Corpuscular HGB CONC 33.5 g/dL (32.0-36.0); Mean Corpuscular Hemoglobin 29.4 pg (27.0-31.0); Mean Corpuscular Volume 87.8 fL (78.0-98.0); Mean Platelet Volume 10.8 fL (7.4-10.4); Platelet Count 207 thou/uL (130-400); RBC Distribution Width 12.2 % (11.5-14.5); Red Blood Cell (RBC) Count 4.11 mill/uL (4.20-5.40)
[2019-10-22 14:20] LABS: ALT (SGPT) 33 U/L (8-55); AST (SGOT) 24 U/L (5-34); Albumin 3.9 g/dL (3.4-4.8); Alkaline Phosphatase 88 U/L (40-110); Anion Gap 13 mmol/L (10-20); BUN (Urea Nitrogen) 11 mg/dL (9.8-20.1); Bilirubin, Total 0.5 mg/dL (0.2-1.2); Calc. Creatinine Clearance 0 mL/min (70-130); Calcium 9.6 mg/dL (7.8-10.44); Carbon Dioxide 30 mmol/L (23-31); Chloride 104 mmol/L (98-107); Estimated GFR-MDRD Greater than 90; Globulin 3.1 g/dL (2.4-3.5); Glucose 106 mg/dL (80-115); Potassium 3.6 mmol/L (3.5-5.1); Sodium 143 mmol/L (136-145)
--- NOTE | 2019-10-22 14:24 | RAD ---
Exam: Left foot 3 views: HISTORY: Shortness of breath left foot pain and swelling COMPARISON: 09/26/2019 FINDINGS: Generalized soft tissue swelling particularly in the dorsal aspect of the foot. Degenerative and oste oarthrosis changes. No acute fracture or dislocation. IMPRESSION: Dorsal soft tissue swelling. Degenerative and osteoarthrosis changes. Little change from prior study.
--- NOTE | 2019-10-22 14:25 | RAD ---
Chest one view HISTORY: Dyspnea. Edema. COMPARISON: 07/27/2018. FINDINGS: Cardiac silhouette is magnified and enlarged. Pulmonary vasculature is unremarkable. Medias tinum is midline. No confluent airspace consolidation or evidence of pneumothorax. Old right posterolateral rib fractures apparent. roundhouse worker leads overlie the chest. IMPRESSION: Cardiomegaly. Chronic-type findings are stable.
--- NOTE | 2019-10-22 14:41 | ULT ---
Venous duplex sonogram left lower extremity HISTORY: Left leg pain and edema. FINDINGS: The left common femoral vein and greater saphenous junction were evaluated along with the f emoral, deep femoral, popliteal, and posterior tibial veins. There is good color and spectral Doppler flow and compression. IMPRESSION: Normal exam.
[2019-10-22 15:42] LABS: Bilirubin Negative (Negative); Blood, Urine Negative (Negative); Glucose, Urine (Dipstick) Negative (Negative); Leukocyte Negative (Negative); Nitrite Negative (Negative); Protein, Urine (Dipstick) Negative (Neg-Trace); Urobilinogen 0.2 mg/dL (Less than 2)
[2019-10-22 15:44] LABS: Clarity Clear (Clear)
[2019-10-22] MEDS ORDERED: Furosemide 40 MG/4 ML VIAL ONE (16:01)
== END 2019-10-22 16:20 | disposition home or self-care (01) ==
LOC: ERS 13:24
DX: I11.0 Hypertensive heart disease with heart failure (principal); I50.9 Heart failure, unspecified; E11.9 Type 2 diabetes mellitus without complications; Z79.899 Other long term (current) drug therapy; Z79.4 Long term (current) use of insulin
CPT/HCPCS: 71045; 80053; 81003; 83880; 84484; 85025; 93005; 96374; J1940

== ENCOUNTER 2023-04-08 14:25 | Emergency (ER) | payer SELFPAY ==
[2023-04-08 15:03] LABS: #Eosinphils 0.1 thou/uL (0.0-0.7); #Monocytes 0.6 thou/uL (0.11-0.59); %Basophils 0.3 % (0.0-1.0); %Eosinophils 0.5 % (0.0-10.0); %Lymphocytes 18.6 % (21.0-51.0); %Neutrophils 74.2 % (42.0-75.0); Hemoglobin 12.4 g/dL (12.0-16.0); Mean Corpuscular HGB CONC 31.8 g/dL (32.0-36.0); Mean Corpuscular Hemoglobin 28.6 pg (27.0-31.0); Mean Corpuscular Volume 89.9 fl (78.0-98.0); Mean Platelet Volume 12.5 fL (7.4-10.4); Platelet Count 197 10x3/uL (130-400); RBC Distribution Width 13.3 % (11.5-14.5); Red Blood Cell (RBC) Count 4.34 mill/uL (4.20-5.40); White Blood Cell (WBC) Count 9.4 10x3/uL (4.8-10.8)
[2023-04-08] MEDS ORDERED: Morphine 4 MG/ML VIAL ONE ×2 (15:37→20:21)
[2023-04-08] MEDS ORDERED: Ketorolac Tromethamine 30 MG/ML VIAL ONE (15:37)
[2023-04-08 15:46] LABS: ALT (SGPT) 15 U/L (8-55); AST (SGOT) 15 U/L (5-34); Albumin 3.9 g/dL (3.4-4.8); Alkaline Phosphatase 111 U/L (40-110); Anion Gap 12 mmol/L (10-20); BUN (Urea Nitrogen) 19 mg/dL (9.8-20.1); Bilirubin, Total 0.3 mg/dL (0.2-1.2); Calc. Creatinine Clearance 0 mL/min (70-130); Calcium 9.5 mg/dL (7.8-10.44); Carbon Dioxide 27 mmol/L (23-31); Chloride 104 mmol/L (98-107); Estimated GFR 83; Glucose 246 mg/dL (80-115); Potassium 4.5 mmol/L (3.5-5.1); Protein, Total 6.9 g/dL (5.8-8.1); Sodium 138 mmol/L (136-145)
[2023-04-08 18:31] LABS: RBC Count-Automated (BF) 1651 /cu.mm; WBC/Nucleated-Auto (BF) 213 /cu.mm
[2023-04-08 19:25] LABS: BF Color Red; Body Fluid Source Synovial Fluid; Clarity Hazy (Clear); Tube # EDTA
[2023-04-08] MEDS ORDERED: Ondansetron PF 4 MG/2 ML Vial ONE (21:04)
[2023-04-09 14:20] LABS: BF Segmented Neutrophils 30 %; Cell Count Non Hematic 65 %; Lymphocytes 5 %
== END 2023-04-08 21:09 | disposition home or self-care (01) ==
LOC: ERS 14:25
DX: M25.462 Effusion, left knee (principal); E11.9 Type 2 diabetes mellitus without complications; I11.0 Hypertensive heart disease with heart failure; I50.9 Heart failure, unspecified; E78.5 Hyperlipidemia, unspecified; Z79.4 Long term (current) use of insulin; Z79.899 Other long term (current) drug therapy; E50.9 Vitamin A deficiency, unspecified
CPT/HCPCS: 20610; 36415; 80053; 82945; 85025; 85060; 85652; 86140; 87070; 87205; 89051; 89060; 96374; 96375; 96376; J1885; J2270; J2405

== ENCOUNTER 2023-07-30 19:53 | Inpatient (IN) | payer OTHER ==
[2023-07-30 23:42] VITALS: BMI 31.3
[2023-07-31] MEDS ORDERED: Ondansetron PF 4 MG/2 ML Vial IVP PRN ×2 (00:15→01:44)
[2023-07-31] MEDS ORDERED: Sodium Chloride 0.9% 1,000 ML IV SCH (00:15)
[2023-07-31] MEDS ORDERED: Ondansetron ODT 4 MG TAB SL PRN (00:15)
[2023-07-31] MEDS ORDERED: Acetaminophen 325 MG TAB PO PRN (00:15)
[2023-07-31] MEDS ORDERED: Ondansetron ODT 4 MG TAB PO PRN (01:44)
[2023-07-31] MEDS ORDERED: Acetaminophen 650 MG Suppository PR PRN (01:44)
[2023-07-31] MEDS ORDERED: Senokot S 8.6-50 MG TAB PO PRN (01:44)
[2023-07-31 01:45] LABS: Hematocrit 37.1 % (36.0-47.0); Hemoglobin 11.2 g/dL (12.0-16.0); Manual Diff?? YES; Mean Corpuscular HGB CONC 30.2 g/dL (32.0-36.0); Mean Corpuscular Hemoglobin 29.2 pg (27.0-31.0); Mean Corpuscular Volume 96.6 fl (78.0-98.0); Mean Platelet Volume 12.5 fL (7.4-10.4); Platelet Count 124 10x3/uL (130-400); RBC Distribution Width 14.1 % (11.5-14.5); Red Blood Cell (RBC) Count 3.84 mill/uL (4.20-5.40)
[2023-07-31 01:46] LABS: Delete Auto Diff?? YES
[2023-07-31 01:55] LABS: Hemoglobin A1c 7.6 % (4.0-6.0)
[2023-07-31 01:56] LABS: SARS-CoV-2 NAA Rapid Test Not Detected (NotDetected)
[2023-07-31 02:09] LABS: Band 14 % (5-11); CellaVision Operator ID LAB.CLH1; Hypochromia SLIGHT = 6-15 cells HPF (0-5); Lymphocytes 3 % (21-51); Neutrophil 83 % (42-75); Platelet Adequacy Comment Platelets Decreased; Polychromasia SLIGHT = 2-3 cells HPF (0-2); Total Cell Count 100
[2023-07-31 02:13] LABS: Troponin I Less than 0.010 ng/mL (< 0.028)
[2023-07-31] MEDS ORDERED: Dextrose 50% Abboject 50 ML SYRINGE SLOW IVP PRN (02:20)
[2023-07-31] MEDS ORDERED: Dextrose 5% in Water 1,000 ML IV PRN (02:20)
[2023-07-31] MEDS ORDERED: Glucagon 1 MG/ML KIT IM PRN (02:20)
[2023-07-31] MEDS ORDERED: HumaLOG 300 UNITS/3 ML VIAL SC PRN (02:20)
[2023-07-31 02:27] LABS: Anion Gap 14 mmol/L (10-20); BUN (Urea Nitrogen) 27 mg/dL (9.8-20.1); Calc. Creatinine Clearance 94 mL/min (70-130); Calcium 8.5 mg/dL (7.8-10.44); Carbon Dioxide 21 mmol/L (23-31); Chloride 108 mmol/L (98-107); Estimated GFR 78; Glucose 279 mg/dL (80-115); Magnesium 2.1 mg/dL (1.6-2.6); Potassium 3.9 mmol/L (3.5-5.1); Sodium 139 mmol/L (136-145)
[2023-07-31] MEDS ORDERED: Furosemide 40 MG/4 ML VIAL SLOW IVP SCH (02:30)
[2023-07-31] MEDS: Furosemide 40 MG/4 ML VIAL SLOW IVP SCH ×2 (05:59→16:30)
[2023-07-31] MEDS: Cefepime 2 GM in Sodium Chloride 0.9% 100 ML IVPB SCH ×2 (06:00→17:59)
[2023-07-31] MEDS ORDERED: Vancomycin 1.25 GM in Sodium Chloride 0.9% 250 ML 300 ML IVPB SCH (09:00)
[2023-07-31] MEDS ORDERED: Furosemide 40 MG TAB PO SCH (09:00)
[2023-07-31 09:42] LABS: Free T4 (Free Thyroxine) 1.04 ng/dL (0.70-1.48)
[2023-07-31] MEDS: Losartan 25 MG TAB PO SCH (09:57)
[2023-07-31] MEDS: Gabapentin 300 MG CAP PO SCH ×2 (09:58→21:44)
[2023-07-31] MEDS: Saccharomyces boulardii 250 MG CAP PO SCH (09:59)
[2023-07-31] MEDS: Carvedilol 3.125 MG TAB PO SCH ×2 (10:00→21:43)
[2023-07-31] MEDS: Famotidine 20 MG TAB PO SCH (10:00)
[2023-07-31] MEDS: Hydrochlorothiazide 25 MG TAB PO SCH (10:00)
[2023-07-31] MEDS: Heparin 5,000 UNITS/ML VIAL SC SCH ×3 (10:05→21:44)
[2023-07-31] MEDS: Insulin Glargine 30 UNITS/0.3 ML VIAL SC SCH ×2 (10:05→21:46)
[2023-07-31] MEDS: Vancomycin 1 GM in Premix 1 BAG IVPB SCH ×2 (10:06→20:54)
[2023-07-31] MEDS ORDERED: Vancomycin (BATCH) 1.25 GM in Premix 1 BAG IVPB SCH (13:00)
[2023-07-31] MEDS: HumaLOG 300 UNITS/3 ML VIAL SC PRN ×2 (13:12→17:59)
[2023-07-31 18:05] LABS: Bilirubin Negative (Negative); Blood, Urine Negative (Negative); Clarity Clear (Clear); Glucose, Urine (Dipstick) Greater than 1000 mg/dL (Negative); Ketone, Urine Negative (Negative); Leukocyte 75 Leu/uL (Negative); Nitrite Negative (Negative); Protein, Urine (Dipstick) Negative (Neg-Trace); RBC/HPF 0-3 HPF (0-3); Squamous Epithelial 0-3 HPF (0-3); Urobilinogen Normal mg/dL (Less than 2); pH, Urine 5.5 (5.0-9.0)
[2023-07-31 18:06] LABS: Bacteria/HPF 1+ HPF (None Seen)
[2023-07-31] MEDS: Simvastatin 10 MG TAB PO SCH (21:44)
[2023-08-01] MEDS: Cefepime 2 GM in Sodium Chloride 0.9% 100 ML IVPB SCH ×2 (06:22→18:41)
[2023-08-01] MEDS: Furosemide 40 MG/4 ML VIAL SLOW IVP SCH ×2 (06:23→14:16)
[2023-08-01] MEDS ORDERED: Vancomycin 1 GM in Premix 1 BAG IVPB SCH (07:15)
[2023-08-01] MEDS ORDERED: Semaglutide [Ozempic] 0.25 MG/0.368 ML Pen.Injctr SC SCH (09:00)
[2023-08-01] MEDS: Saccharomyces boulardii 250 MG CAP PO SCH (09:13)
[2023-08-01] MEDS: Famotidine 20 MG TAB PO SCH (09:13)
[2023-08-01] MEDS: Losartan 25 MG TAB PO SCH (09:13)
[2023-08-01] MEDS: Hydrochlorothiazide 25 MG TAB PO SCH (09:14)
[2023-08-01] MEDS: Carvedilol 3.125 MG TAB PO SCH ×2 (09:14→22:42)
[2023-08-01] MEDS: Gabapentin 300 MG CAP PO SCH ×2 (09:15→22:42)
[2023-08-01] MEDS: Insulin Glargine 30 UNITS/0.3 ML VIAL SC SCH ×2 (09:15→22:43)
[2023-08-01] MEDS: Heparin 5,000 UNITS/ML VIAL SC SCH ×3 (11:11→22:42)
[2023-08-01] MEDS: Vancomycin HCl 750 MG in Sodium Chloride 0.9% 250 ML 250 ML IVPB SCH ×2 (11:12→22:43)
[2023-08-01] MEDS: HumaLOG 300 UNITS/3 ML VIAL SC PRN (12:59)
[2023-08-01] MEDS ORDERED: Empagliflozin 10 MG TAB PO SCH (16:45)
[2023-08-01] MEDS: Simvastatin 10 MG TAB PO SCH (22:41)
[2023-08-02 05:22] LABS: #Eosinphils 0.2 thou/uL (0.0-0.7); #Monocytes 0.7 thou/uL (0.11-0.59); #Neutrophils 5.1 thou/uL (1.40-6.50); %Basophils 0.3 % (0.0-1.0); %Lymphocytes 18.9 % (21.0-51.0); %Monocytes 9.1 % (0.0-10.0); %Neutrophils 69.3 % (42.0-75.0); Hematocrit 37.2 % (36.0-47.0); Hemoglobin 11.6 g/dL (12.0-16.0); Mean Corpuscular HGB CONC 31.2 g/dL (32.0-36.0); Mean Corpuscular Hemoglobin 28.6 pg (27.0-31.0); Mean Corpuscular Volume 91.6 fl (78.0-98.0); Mean Platelet Volume 13.3 fL (7.4-10.4); Platelet Count 165 10x3/uL (130-400); RBC Distribution Width 13.4 % (11.5-14.5); Red Blood Cell (RBC) Count 4.06 mill/uL (4.20-5.40); White Blood Cell (WBC) Count 7.4 10x3/uL (4.8-10.8)
[2023-08-02 05:49] LABS: Anion Gap 13 mmol/L (10-20); BUN (Urea Nitrogen) 25 mg/dL (9.8-20.1); Calc. Creatinine Clearance 106 mL/min (70-130); Carbon Dioxide 31 mmol/L (23-31); Chloride 100 mmol/L (98-107); Estimated GFR 91; Glucose 185 mg/dL (80-115); Potassium 3.3 mmol/L (3.5-5.1); Sodium 141 mmol/L (136-145)
[2023-08-02] MEDS: Cefepime 2 GM in Sodium Chloride 0.9% 100 ML IVPB SCH (06:38)
[2023-08-02] MEDS ORDERED: Furosemide 40 MG TAB PO SCH (07:30)
[2023-08-02] MEDS: Acetaminophen 325 MG TAB PO PRN ×2 (07:45→13:34)
[2023-08-02] MEDS ORDERED: Multivitamin w/Zinc Stress 1 TAB PO SCH (09:00)
[2023-08-02] MEDS ORDERED: Empagliflozin 10 MG TAB PO SCH (09:00)
[2023-08-02] MEDS: Carvedilol 3.125 MG TAB PO SCH (10:06)
[2023-08-02] MEDS: Hydrochlorothiazide 25 MG TAB PO SCH (10:07)
[2023-08-02] MEDS: Heparin 5,000 UNITS/ML VIAL SC SCH ×2 (10:08→15:11)
[2023-08-02] MEDS: Gabapentin 300 MG CAP PO SCH (10:08)
[2023-08-02] MEDS: Losartan 25 MG TAB PO SCH (10:09)
[2023-08-02] MEDS: Insulin Glargine 30 UNITS/0.3 ML VIAL SC SCH (10:10)
[2023-08-02] MEDS: Saccharomyces boulardii 250 MG CAP PO SCH (10:10)
[2023-08-02] MEDS: Vancomycin HCl 750 MG in Sodium Chloride 0.9% 250 ML 250 ML IVPB SCH (10:10)
[2023-08-02 12:50] VITALS: TEMP 98.5
[2023-08-02 13:12] VITALS: BP 107/59
== END 2023-08-02 18:18 | disposition home or self-care (01) | DRG 871 ==
LOC: UNDOADMIN 23:21 → T4-A 23:21 → 2NO 07-31 03:41 → T4-A 07-31 03:41
PROVIDERS: ADMIT Internal Medicine; ATTEND Hospitalist
DX: A41.9 Sepsis, unspecified organism (principal); I50.33 Acute on chronic diastolic (congestive) heart failure; N17.9 Acute kidney failure, unspecified; I11.0 Hypertensive heart disease with heart failure; E11.9 Type 2 diabetes mellitus without complications; E78.5 Hyperlipidemia, unspecified; E11.65 Type 2 diabetes mellitus with hyperglycemia; N28.1 Cyst of kidney, acquired; G47.33 Obstructive sleep apnea (adult) (pediatric); A08.4 Viral intestinal infection, unspecified; Z79.4 Long term (current) use of insulin; Z79.84 Long term (current) use of oral hypoglycemic drugs; Z79.899 Other long term (current) drug therapy; Z11.52 Encounter for screening for COVID-19
CPT/HCPCS: 36415; 36416; 80048; 80202; 81003; 81015; 83036; 83605; 83735; 83880; 84145; 84439; 84443; 84481; 84484; 85025; 93005; 93010; 93306; J0692; J1644; J1815; J1940; J3370; J3370-JW; J3490; J7050

== ENCOUNTER 2024-02-19 14:35 | Outpatient (CLI) | payer OTHER | END 2024-02-19 14:36 | disposition home or self-care (01) | LOC: BICCT 14:35 | PROVIDERS: ATTEND Orthopaedic Surgery | DX: M17.12 Unilateral primary osteoarthritis, left knee (principal) ==